=== PATIENT | female | born 1965 | race Caucasian/White ===

== ENCOUNTER 2019-02-14 16:31 | Inpatient (IN) | payer MEDICAID, OTHER ==
[~2019-02-14] VITALS: Ht 162.6 cm; Wt 179.0 kg
[2019-02-14 17:14] LABS: BASOPHILS # (AUTO) 0.03 x10^3/uL (0-0.1); BASOPHILS % (AUTO) 0 % (0-1); EOSINOPHILS # (AUTO) 0.18 x10^3/uL (0-0.4); EOSINOPHILS % (AUTO) 2 % (1-7); LYMPHOCYTES # (AUTO) 2.01 x10^3/uL (1-3.4); LYMPHOCYTES % (AUTO) 25 % (22-44); MD NO; MEAN CORPUSCULAR HEMOGLOBIN 22.6 pg (27.0-34.8); MEAN CORPUSCULAR HGB CONC 30.3 g/dL (32.4-35.8); MEAN CORPUSCULAR VOLUME 74.4 fL (80-100); MEAN PLATELET VOLUME 11.2 fL (7.4-10.4); MONOCYTES # (AUTO) 0.52 x10^3/uL (0.2-0.8); MONOCYTES % (AUTO) 7 % (2-9); NEUTROPHILS # (AUTO) 5.19 x10^3/uL (1.8-6.8); NEUTROPHILS % (AUTO) 65 % (42-75); PLATELET COUNT 328 x10^3/uL (130-400); RED BLOOD COUNT 4.08 x10^6/uL (3.82-5.3); RED CELL DISTRIBUTION WIDTH 20.7 % (9.6-15.2)
--- NOTE | 2019-02-14 17:21 | NUR ---
US AT BEDSIDE
[2019-02-14 17:25] LABS: INTERNATIONAL NORMALIZED RATIO 1.02 (0.93-1.1); PROTHROMBIN TIME 10.7 Seconds (9.6-11.5)
[2019-02-14 17:26] LABS: ALANINE AMINOTRANSFERASE 16 U/L (12-78); ALBUMIN 3.3 g/dL (3.4-5.0); ANION GAP 9 mmol/L (5-15); CALCIUM 9.5 mg/dL (8.5-10.1); CHLORIDE 103 mmol/L (98-107)
[2019-02-14 17:29] LABS: ALKALINE PHOSPHATASE 74 U/L (45-117); BILIRUBIN,TOTAL 0.4 mg/dL (0.2-1.0); TOTAL PROTEIN 7.4 g/dL (6.4-8.2)
--- NOTE | 2019-02-14 17:43 | NUR ---
Pt resting on [place]. All concerns adressed. CP monitors in place. MD at bedside.
[2019-02-14] MEDS ORDERED: FUROSEMIDE 40 MG/4 ML ONE (18:10)
[2019-02-14] MEDS ORDERED: METO-99 PO (18:24)
[2019-02-14] MEDS ORDERED: DIGO125T PO (18:24)
[2019-02-14] MEDS ORDERED: AMPICILLIN/SULBACTAM 3 GM in SODIUM CHLORIDE 0.9% 100 ML IV ONE (18:30)
[2019-02-14] MEDS ORDERED: FUROSEMIDE 40 MG/4 ML IV ONE (18:30)
[2019-02-14] MEDS ORDERED: VANCOMYCIN 2,400 MG in SODIUM CHLORIDE 0.9% 500 ML IV ONE (18:30)
[2019-02-14] MEDS ORDERED: VANCOMYCIN PER PHARMACY MC ONE (18:30)
[2019-02-14] MEDS ORDERED: VANCOMYCIN PER PHARMACY MC PRN (19:00)
[2019-02-14] MEDS ORDERED: AMPICILLIN/SULBACTAM 3 GM in SODIUM CHLORIDE 0.9% 100 ML IV SCH (19:00)
[2019-02-14] MEDS ORDERED: ACETAMINOPHEN 325 MG TABLET PO PRN (19:00)
[2019-02-14] MEDS ORDERED: ENOXAPARIN 40 MG/0.4 ML SQ SCH (19:00)
[2019-02-14] MEDS ORDERED: hydrALAzine 20 MG/ML, 1ML IVPush PRN (19:00)
--- NOTE | 2019-02-14 19:23 | NUR ---
PT ASSISTED TO [facility]. [facility] CAMILO BRITT APPLIED R/T URINARY INCONTINENCE. SOLE.
[2019-02-14 19:34] LABS: % IRON SATURATION 9 % (20-55); IRON LEVEL 37 mcg/dL (50-170); TOTAL IRON BINDING CAPACITY 414 mcg/dL (250-450)
--- NOTE | 2019-02-14 19:36 | NUR ---
[facility] REPORT TO JOSE M DUMONT OVER PHONE.
[2019-02-14] MEDS ORDERED: PHARMACOKINETIC MONITORING MC PRN (20:30)
[2019-02-14] MEDS ORDERED: PHARMACOKINETIC CONSULTATION MC ONE (20:30)
[2019-02-14 21:13] VITALS: BP 129/61
[2019-02-14] MEDS: METOPROLOL TARTRATE 100 MG TABLET PO SCH (22:17)
[2019-02-15] MEDS: AMPICILLIN/SULBACTAM 3 GM in SODIUM CHLORIDE 0.9% 100 ML IV SCH ×4 (00:08→19:00)
[2019-02-15 01:52] VITALS: BP 102/62
[2019-02-15 05:49] LABS: BASOPHILS # (AUTO) 0.07 x10^3/uL (0-0.1); BASOPHILS % (AUTO) 1 % (0-1); EOSINOPHILS % (AUTO) 1 % (1-7); LYMPHOCYTES # (AUTO) 1.83 x10^3/uL (1-3.4); LYMPHOCYTES % (AUTO) 25 % (22-44); MD NO; MEAN CORPUSCULAR HEMOGLOBIN 22.7 pg (27.0-34.8); MEAN CORPUSCULAR HGB CONC 30.6 g/dL (32.4-35.8); MEAN CORPUSCULAR VOLUME 74.2 fL (80-100); MEAN PLATELET VOLUME 11.1 fL (7.4-10.4); MONOCYTES # (AUTO) 0.47 x10^3/uL (0.2-0.8); MONOCYTES % (AUTO) 6 % (2-9); NEUTROPHILS # (AUTO) 4.95 x10^3/uL (1.8-6.8); NEUTROPHILS % (AUTO) 67 % (42-75); PLATELET COUNT 277 x10^3/uL (130-400); RED BLOOD COUNT 3.58 x10^6/uL (3.82-5.3); RED CELL DISTRIBUTION WIDTH 21.3 % (9.6-15.2)
[2019-02-15 05:52] LABS: ALANINE AMINOTRANSFERASE 16 U/L (12-78); ANION GAP 6 mmol/L (5-15); CALCIUM 9.4 mg/dL (8.5-10.1); CHLORIDE 102 mmol/L (98-107)
[2019-02-15 05:54] LABS: ALKALINE PHOSPHATASE 60 U/L (45-117); BILIRUBIN,TOTAL 0.5 mg/dL (0.2-1.0); CREATININE 0.79 mg/dL (0.55-1.02); TOTAL PROTEIN 6.3 g/dL (6.4-8.2)
[2019-02-15 07:16] VITALS: BP 132/72
[2019-02-15] MEDS: VANCOMYCIN 2,000 MG in SODIUM CHLORIDE 0.9% 500 ML IV SCH ×2 (08:23→20:32)
[2019-02-15] MEDS: DIGOXIN 0.125 MG TABLET PO SCH (08:23)
[2019-02-15] MEDS: METOPROLOL TARTRATE 100 MG TABLET PO SCH ×3 (08:23→20:40)
[2019-02-15 10:55] LABS: MICROSCOPIC NOT IND
[2019-02-15] MEDS: FERROUS SULFATE 325 MG TABLET PO SCH ×2 (12:34→16:31)
[2019-02-15 13:48] VITALS: BP 121/73
[2019-02-15 20:40] VITALS: BP 133/80
[2019-02-16] MEDS: AMPICILLIN/SULBACTAM 3 GM in SODIUM CHLORIDE 0.9% 100 ML IV SCH ×4 (01:03→19:11)
[2019-02-16 03:59] VITALS: BP 138/77
[2019-02-16 06:36] VITALS: BP 138/80
[2019-02-16] MEDS: DIGOXIN 0.125 MG TABLET PO SCH (08:05)
[2019-02-16] MEDS: METOPROLOL TARTRATE 100 MG TABLET PO SCH ×3 (08:05→21:59)
[2019-02-16] MEDS: FERROUS SULFATE 325 MG TABLET PO SCH ×3 (08:05→17:02)
[2019-02-16] MEDS: VANCOMYCIN 2,000 MG in SODIUM CHLORIDE 0.9% 500 ML IV SCH ×2 (08:05→08:48)
[2019-02-16 14:10] VITALS: BP 128/73
[2019-02-16 17:00] VITALS: BP 133/77
[2019-02-16] MEDS: FUROSEMIDE 20 MG/2 ML IV SCH (17:02)
[2019-02-16 20:07] VITALS: BP 131/70
[2019-02-17] MEDS: AMPICILLIN/SULBACTAM 3 GM in SODIUM CHLORIDE 0.9% 100 ML IV SCH ×4 (01:06→19:25)
[2019-02-17 03:00] VITALS: BP 112/71
[2019-02-17] MEDS ORDERED: VANCOMYCIN 2,000 MG in SODIUM CHLORIDE 0.9% 500 ML IV SCH (03:00)
[2019-02-17 07:41] LABS: ANION GAP 4 mmol/L (5-15); CALCIUM 8.3 mg/dL (8.5-10.1); CHLORIDE 106 mmol/L (98-107); CREATININE 0.63 mg/dL (0.55-1.02)
[2019-02-17 08:00] VITALS: BP 133/72
[2019-02-17] MEDS: POTASSIUM CHLORIDE 20 MEQ TAB.ER.PRT PO SCH (08:43)
[2019-02-17] MEDS: FUROSEMIDE 20 MG/2 ML IV SCH ×2 (08:43→16:19)
[2019-02-17] MEDS: FERROUS SULFATE 325 MG TABLET PO SCH ×3 (08:43→16:19)
[2019-02-17] MEDS: METOPROLOL TARTRATE 100 MG TABLET PO SCH ×3 (08:44→22:21)
[2019-02-17] MEDS: DIGOXIN 0.125 MG TABLET PO SCH (08:44)
[2019-02-17] MEDS ORDERED: SULF1TAB24 PO (10:26)
[2019-02-17] MEDS ORDERED: FERR-51 PO (10:26)
[2019-02-17] MEDS ORDERED: FURO-92 PO (10:26)
[2019-02-17] MEDS ORDERED: AMOX1TAB62 PO (10:26)
[2019-02-17] MEDS ORDERED: POTA20TA6 PO (10:29)
[2019-02-17] MEDS ORDERED: ASPI-650 PO (10:39)
[2019-02-17 14:00] VITALS: BP 107/58
[2019-02-17 19:38] VITALS: BP 107/66
[2019-02-17] MEDS ORDERED: TEMAZEPAM 15 MG CAPSULE PO PRN (23:30)
[2019-02-18] MEDS: AMPICILLIN/SULBACTAM 3 GM in SODIUM CHLORIDE 0.9% 100 ML IV SCH ×3 (01:14→12:33)
[2019-02-18 02:39] VITALS: BP 108/68
[2019-02-18] MEDS ORDERED: VANCOMYCIN 2,000 MG in SODIUM CHLORIDE 0.9% 500 ML IV SCH (03:00)
[2019-02-18] MEDS: METOPROLOL TARTRATE 100 MG TABLET PO SCH ×3 (08:24→20:33)
[2019-02-18] MEDS: POTASSIUM CHLORIDE 20 MEQ TAB.ER.PRT PO SCH (08:24)
[2019-02-18] MEDS: FERROUS SULFATE 325 MG TABLET PO SCH ×3 (08:24→16:30)
[2019-02-18] MEDS: DIGOXIN 0.125 MG TABLET PO SCH (08:24)
[2019-02-18] MEDS: FUROSEMIDE 20 MG/2 ML IV SCH ×2 (08:24→16:30)
[2019-02-18 08:26] VITALS: BP 118/71
[2019-02-18 12:31] VITALS: BP 109/69
[2019-02-18] MEDS ORDERED: AMOXICILLIN/CLAV 875-125MG TABLET PO ONE (17:00)
[2019-02-18] MEDS ORDERED: AMOXICILLIN/CLAV 1000-62.5MG TABLET ER.12H PO SCH (17:00)
[2019-02-18 19:48] VITALS: BP 127/71
[2019-02-18] MEDS: SULFAMETH./TRIMETHOPRIM DS 800MG/160MG TABLET PO SCH (20:33)
[2019-02-19 03:55] VITALS: BP 139/70
[2019-02-19] MEDS ORDERED: ALUMINUM/MAG/SIMETHICONE 30 ML UDC PO ONE (04:30)
[2019-02-19] MEDS: AMOXICILLIN/CLAV 1000-62.5MG TABLET ER.12H PO SCH ×2 (04:38→17:00)
[2019-02-19 06:19] LABS: CREATININE 0.79 mg/dL (0.55-1.02)
[2019-02-19 07:47] VITALS: BP 122/74
[2019-02-19] MEDS: SULFAMETH./TRIMETHOPRIM DS 800MG/160MG TABLET PO SCH (07:49)
[2019-02-19] MEDS: DIGOXIN 0.125 MG TABLET PO SCH (07:50)
[2019-02-19] MEDS: FERROUS SULFATE 325 MG TABLET PO SCH ×3 (07:50→17:23)
[2019-02-19] MEDS: METOPROLOL TARTRATE 100 MG TABLET PO SCH ×2 (07:50→15:10)
[2019-02-19 08:16] VITALS: BP 102/58
[2019-02-19] MEDS ORDERED: POTASSIUM CHLORIDE 20 MEQ TAB.ER.PRT PO SCH (09:00)
[2019-02-19] MEDS ORDERED: FUROSEMIDE 40 MG TABLET PO SCH (09:00)
[2019-02-19] MEDS ORDERED: LACT1TAB13 PO (11:25)
[2019-02-19 15:09] VITALS: BP 133/71
== END 2019-02-19 17:54 | disposition home health service (06) | DRG 602 ==
LOC: ED 16:47 → EDIP 18:28 → 3NE 20:07
PROVIDERS: ADMIT Family Medicine; ATTEND Family Medicine
DX: L03.116 Cellulitis of left lower limb (principal); I50.33 Acute on chronic diastolic (congestive) heart failure; Z68.44 Body mass index [BMI] 60.0-69.9, adult; I27.81 Cor pulmonale (chronic); D50.9 Iron deficiency anemia, unspecified; L03.115 Cellulitis of right lower limb; Z88.5 Allergy status to narcotic agent; I10 Essential (primary) hypertension; E11.9 Type 2 diabetes mellitus without complications; E66.01 Morbid (severe) obesity due to excess calories; I27.20 Pulmonary hypertension, unspecified; I48.2 Chronic atrial fibrillation; I89.0 Lymphedema, not elsewhere classified; Z79.82 Long term (current) use of aspirin; Z95.828 Presence of other vascular implants and grafts; Z86.711 Personal history of pulmonary embolism; I11.0 Hypertensive heart disease with heart failure
CPT/HCPCS: 36415; 80048; 80053; 80162; 80202; 81003; 82565; 83540; 83550; 83880; 85025; 85610; 85730; 87040; 93005; 93306; 93970; 96365; 96375; G0378; J0295; J1940; J3370; J7040